=== PATIENT | male | born 1965 | race Caucasian/White ===

== ENCOUNTER 2024-07-02 11:18 | Outpatient (CLI) | payer BC | END 2024-07-02 23:59 | disposition home or self-care (01) | LOC: RAD 11:18 | PROVIDERS: ATTEND Family Medicine | DX: M54.6 Pain in thoracic spine (principal) | CPT/HCPCS: 72074 ==

== ENCOUNTER 2025-05-13 06:58 | Emergency (ER) | payer BC ==
[~2025-05-13] VITALS: Ht 182.9 cm; Wt 120.5 kg
[2025-05-13 07:05] VITALS: TEMP 96.8
[2025-05-13 08:11] LABS: BASOPHILS % (AUTO) 0.6 % (0-1); EOSINOPHILS # (AUTO) 0.1 X10'3 (0-0.9); HEMATOCRIT 41.3 % (42.0-52.0); LYMPHOCYTES # (AUTO) 1.2 X10'3 (1.1-4.8); LYMPHOCYTES % (AUTO) 17.2 % (21-51); MEAN CORPUSCULAR HEMOGLOBIN 30.8 PG (27.0-31.0); MEAN CORPUSCULAR HGB CONC 33.9 g/dL (33.0-36.5); MEAN CORPUSCULAR VOLUME 90.7 FL (78-98); MEAN PLATELET VOLUME 8.4 FL (7.4-10.4); MONOCYTES # (AUTO) 0.5 X10'3 (0-0.9); MONOCYTES % (AUTO) 7.1 % (2-12); NEUTROPHILS # (AUTO) 5.2 X10'3 (1.8-7.7); NEUTROPHILS % (AUTO) 73.1 % (42-75); PLATELET COUNT 257 X10'3 (140-440); RED BLOOD COUNT 4.55 X10'6 (4.70-6.10); RED CELL DISTRIBUTION WIDTH 13.6 % (11.5-14.5); WHITE BLOOD COUNT 7.1 X10'3 (4.5-11.0)
[2025-05-13 08:20] LABS: ALANINE AMINOTRANSFERASE 39 U/L (12-78); ALBUMIN 3.7 G/DL (3.4-5.0); ALBUMIN/GLOBULIN RATIO 1.3 (1.1-1.5); ALKALINE PHOSPHATASE 74 IU/L (46-116); ANION GAP 6 (8-16); ASPARTATE AMINO TRANSFERASE 21 U/L (10-37); BILIRUBIN,TOTAL 0.6 MG/DL (0.1-1.0); BLOOD UREA NITROGEN 27 MG/DL (7-18); BUN/CREATININE RATIO 21.6 (10.0-20.0); CALCIUM 8.7 MG/DL (8.5-10.1); CHLORIDE 109 MMOL/L (99-107); CREATININE 1.25 MG/DL (0.60-1.10); GLUCOSE 122 MG/DL (70-104); LIPASE 71 U/L (16-77); POTASSIUM 3.9 MMOL/L (3.5-5.1); SODIUM 140 MMOL/L (135-145); TOTAL CARBON DIOXIDE 24.8 MMOL/L (24-32); TOTAL PROTEIN 6.6 G/DL (6.4-8.2); eCRCL 70 ML/MIN; eGFR 59 ML/MIN
[2025-05-13 08:40] LABS: BILIRUBIN,URINE NEGATIVE (Neg); CLARITY,URINE CLOUDY (Clear); COLOR,URINE YELLOW (Yellow); GLUCOSE, URINE NEGATIVE (Neg); KETONES,URINE NEGATIVE (Neg); LEUKOCYTE ESTERASE ,URINE NEGATIVE (Neg); NITRITES, URINE NEGATIVE (Neg); OCCULT BLOOD,URINE LARGE (Neg); PROTEIN,URINE TRACE mg/dl (Neg); UROBILINOGEN,URINE 0.2 E.U/dL (0.2-1.0)
[2025-05-13 08:57] LABS: BACTERIA,URINE 1+ /HPF (Neg); RBC,URINE TNTC /HPF (0-2); SQUAMOUS EPITHELIAL CELL,UR NONE SEEN /LPF (FEW); UA COLLECTION TYPE CLN CATCH MIDSTREAM; WBC,URINE 0-4 /HPF (0-4)
--- NOTE | 2025-05-13 09:17 | Physician Documentation ---
History of Present Illness ~ Chief Complaint: Flank Pain Stated Complaint: FLANK PAIN Time Seen by MD: 08:57 HPI 59-year-old male presenting with left-sided flank pain that started about 6 hours ago and woke him up from sleep. He describes a sharp pain that radiated from his back to his groin area. Pain would come and go. He also became very nauseated and was dry heaving but did not actually vomit. States that it feels like he is passing a kidney stone. He has had red bloody urine since the pain started. He has had stones in the past and this feels exactly the same. He denies any chest pain, fever, chills or any other associated symptoms. Medication Reconciliation Allergies: Coded Allergies: No Known Allergies (Unverified , 05/13/25) Review of Systems All Other Systems at this time: Reviewed and Negative Physical Exam Vital Signs: Temperature: 96.8, Source: Temporal, Heart Rate: 65, Respiratory Rate: 15, BP: 115/71, Pulse Oximetry: 95, Weight: 120.450 Oxygen Flow Rate: 0 Physical Exam I have reviewed the triage vitals. CONST: Well developed and well nourished. In no acute distress HENT: Head Atraumatic EYES: Pupils are equal, round and reactive to light. Normal conjunctiva NECK: Normal range of motion. Supple. CARDIO: Normal rate and regular rhythm. No murmurs, rubs, or gallops. S1, S2. PULM/CHEST: No respiratory distress. Lungs clear to auscultation. No wheeze ABD: Soft and nontender. Nondistended. Bowel sounds normal. No guarding. : Some left-sided CVA tenderness MSK: No edema. No deformity. NEURO: Alert and oriented to person, place and time. Moving all extremities SKIN: Warm and dry. PSYCH: Normal mood and affect. Good eye contact. Progress Results/Orders Results/Orders Orders - JAYE LEWIS MD Ct Abdomen Pelvis (05/13/25 09:30) Completed Orders - JAYE LEWIS MD Cbc/Diff (05/13/25 07:07) BMP (05/13/25 07:07) Lipase (05/13/25 07:07) CMP (05/13/25 07:07) Ua W/Microscopic, Cult If Ind (05/13/25 07:08) Ondansetron Inj. (Zofran 4mg/2ml Vial) (05/13/25 09:20) Ketorolac Trometh 30mg/Ml Vial (Toradol (05/13/25 09:20) Normal Saline 1000ml (Sodium Chloride 10 (05/13/25 09:20) Ct Abdomen Pelvis (05/13/25 09:30) Medications Received in ER Medications (Trade) Dose Ordered Sig/Aristeo Route PRN Reason Start Time Stop Time Status Last Admin Dose Admin (Zofran 4mg/2ml vial) 4 mg ONCE ONCE IV 05/13/25 09:20 05/13/25 09:21 DC 05/13/25 09:32 4 MG (Toradol inj. 30mg/ml) 30 mg ONCE ONCE IV 05/13/25 09:20 05/13/25 09:21 DC 05/13/25 09:32 30 MG Vital Signs 05/13/25 05/13/25 05/13/25 05/13/25 07:05 08:57 08:57 09:32 Temp 96.8 Pulse 77 65 Resp 18 15 15 15 B/P (MAP) 145/50 115/71 (86) Pulse Ox 99 95 O2 Flow Rate 0 Laboratory Tests Test 05/13/25 07:08 05/13/25 07:35 Urine Specimen Description Cln catch midstream Urine Color Yellow Urine Clarity Cloudy Urine pH 6.0 Urine Specific [place] 1.020 Urine Protein Trace Urine Glucose (UA) Negative Urine Ketones Negative Urine Occult Blood Large H Urine Nitrite Negative Urine Bilirubin Negative Urine Urobilinogen 0.2 Urine Leukocyte Esterase Negative Urine RBC Tntc Urine WBC 0-4 Urine Squamous Epithelial Cells None seen Urine Bacteria 1+ Urine Culture Indicated Not ind Volume Urine Centrifuged 10 ml Urine Comment White Blood Count 7.1 Red Blood Count 4.55 L Hemoglobin 14.0 Hematocrit 41.3 L Mean Corpuscular Volume 90.7 Mean Corpuscular Hemoglobin 30.8 Mean Corpuscular Hemoglobin Concent 33.9 Red Cell Distribution Width 13.6 Platelet Count 257 Mean Platelet Volume 8.4 Neutrophils (%) (Auto) 73.1 Lymphocytes (%) (Auto) 17.2 L Monocytes (%) (Auto) 7.1 Eosinophils (%) (Auto) 2.0 Basophils (%) (Auto) 0.6 Neutrophils # (Auto) 5.2 Lymphocytes # (Auto) 1.2 Monocytes # (Auto) 0.5 Eosinophils # (Auto) 0.1 Basophils # (Auto) 0.0 CBC Comment Sodium Level 140 Potassium Level 3.9 Chloride Level 109 H Carbon Dioxide Level 24.8 Anion Gap 6 L Blood Urea Nitrogen 27 H Creatinine 1.25 H Estimated GFR/1.73 m2 59 BUN/Creatinine Ratio 21.6 H Glucose Level 122 H Calcium Level 8.7 Total Bilirubin 0.6 Aspartate Amino Transf (AST/SGOT) 21 Alanine Aminotransferase (ALT/SGPT) 39 Alkaline Phosphatase 74 Total Protein 6.6 Albumin 3.7 Globulin 2.9 Albumin/Globulin Ratio 1.3 Lipase 71 Chemistry Comments EKG/XRAY/CT/US/VASC/MRI CT : Impression Procedure: CT CT ABDOMEN PELVIS 05/13/2025 09:38 AM Indication: Left flank pain Comparison Study: None Technique: Axial images were obtained and reformatted in coronal and sagittal p lanes. All CT scans at this medical facility are performed using dose modulation techniques as appropriate to a performed exam including the following: Automated exposure control was utilized; adjustment of the MA and/or KV according to patient size; and use of iterative reconstruction technique. CT Dose: CTDI volume is 35 mGy. Dose-length product is 231 mGy*cm FINDINGS: Lower Chest: Unremarkable. Hepatobiliary: Unremarkable. Spleen: Unremarkable. Pancreas: Unremarkable. Adrenal Glands: Unremarkable. tract: The kidneys are normal in size bilaterally without hydronephrosis . Several subcentimeter nonobstructive calculi are seen in bilateral kidneys measuring up to 5 mm.. The urinary bladder is completely empty and suboptimally evaluated. GI tract: The stomach is grossly normal in appearance. No evidence of small bowel obstruction. The large bowel is unremarkable. The appendix is normal. Lymphatics: No mesenteric, retroperitoneal or periportal lymphadenopathy. Vasculature: Aorta is normal in caliber. Scattered calcified plaques are noted. Pelvic Organs: Severe prostatic hyperplasia measuring up to 5 cm in transverse containing several punctate calcifications. Bones/soft tissues: No acute abnormality. Remote total left hip arthroplasty. Multilevel degenerative disc disease and posterior facet arthropathy of the lumbar spine. Other: None. IMPRESSION: 1. No CT evidence for acute intra-abdominal or intrapelvic process. Specifically, no hydronephrosis or obstructing calculi. Several Subcentimeter nonobstructive Bilateral renal stones are seen measuring up to 5 mm without hydronephrosis or hydroureter. 2. Severe prostatic hyperplasia. Medical Decision Making Additional Comment 59-year-old male presenting with left-sided flank pain likely secondary to a re nal stone that it appears he has now passed. A CT of the abdomen and pelvis did not indicate any abnormalities and no stones were visualized. His urinalysis shows just blood and no signs of any infection. I believe that he likely had passed the stone. Patient was medicated with Toradol IV, Zofran IV and a L of normal saline. He is currently now asymptomatic. He was advised to drink plenty of fluids and monitor symptoms for complete resolution. Return to the ED with any acutely worsening symptoms. Departure Disposition: 01 HOME / SELF CARE / HOMELESS Impression: Primary Impression: Calculus of kidney Condition: Improved Discharge Instructions: Kidney Stones Additional Instructions: Drink plenty of fluids. Monitor symptoms for improvement and resolution. Return to the ED with any acutely worsening symptoms. Referrals: NO PRIMARY CARE PROVIDER (PCP) JAYE LEWIS MD May 13, 2025 09:17
[2025-05-13] MEDS: ondansetron/PF 4mg/2ml inj IV ONE (09:32)
[2025-05-13] MEDS: ketorolac trometh 30MG/ML vial 30 MG/ML VIAL IV ONE (09:32)
[2025-05-13] MEDS: normal saline 1000ml 1,000 ML IV ONE (09:38)
--- NOTE | 2025-05-13 10:29 | RADIOLOGY REPORT ---
Procedure: CT CT ABDOMEN PELVIS 05/13/2025 09:38 AM Indication: Left flank pain Comparison Study: None Technique: Axial images were obtained and reformatted in coronal and sagittal planes. All CT scans at this medical facility are performed using dose modulation techniques as appropriate to a performed e xam including the following: Automated exposure control was utilized; adjustment of the MA and/or KV according to patient size; and use of iterative reconstruction technique. CT Dose: CTDI volume is 35 mGy. Dose-length product is 231 mGy*cm FINDINGS: Lower Chest: Unremarkable. Hepatobiliary: Unremarkable. Spleen: Unremarkable. Pancreas: Unremarkable. Adrenal Glands: Unremarkable. tract: The kidneys are normal in size bilaterally without hydronephrosis . Several subcentimeter nonobstructive calculi are seen in bilateral kidneys measuring up to 5 mm.. The urinary bladder is co mpletely empty and suboptimally evaluated. GI tract: The stomach is grossly normal in appearance. No evidence of small bowel obstruction. The la rge bowel is unremarkable. The appendix is normal. Lymphatics: No mesenteric, retroperitoneal or periportal lymphadenopathy. Vasculature: Aorta is normal in caliber. Scattered calcified plaques are noted. Pelvic Organs: Severe prostatic hyperplasia measuring up to 5 cm in transverse containing several pun ctate calcifications. Bones/soft tissues: No acute abnormality. Remote total left hip arthroplasty. Multilevel degenerative disc disease and posterior facet arthropathy of the lumbar spine. Other: None. IMPRESSION: 1. No CT evidence for acute intra-abdominal or intrapelvic process. Specifically, no hydronephrosis o r obstructing calculi. Several Subcentimeter nonobstructive Bilateral renal stones are seen measuring up to 5 mm without hydronephrosis or hydroureter. 2. Severe prostatic hyperplasia.
[2025-05-13 11:13] VITALS: BP 122/69; PULSE 66; RESP 15; O2SAT 96
== END 2025-05-13 11:14 | disposition home or self-care (01) ==
LOC: ER 06:58
DX: N20.0 Calculus of kidney (principal)
CPT/HCPCS: 36415; 74176; 80053; 81001; 83690; 85025; 96374; 96375; 99285; J1885; J2405; J7030